=== PATIENT | female | born 1970 | race Caucasian/White ===

== ENCOUNTER → 2018-10-08 | Outpatient (CLI) | payer OTHER ==
--- NOTE | 2018-10-12 19:47 | RADIOLOGY REPORT (SQ) ---
EXAM DESCRIPTION: MRI BREAST BILATERAL W/WO COMPLETED DATE/TIME: 10/12/2018 7:30 pm REASON FOR STUDY: POS BRCA2 GENE MUTATION (Z15.01, Z15.09) Z15.01 GENETIC SUSCEPTIBILITY TO MALIGNA NT NEOPLASM OF BREAS Z15.09 GENETIC SUSCEPTIBILITY TO OTHER MALIGNANT NEOPLASM COMPARISON: Prior mammography PATHOLOGIC CORRELATION: None. CONTRAST TYPE AND DOSE: 20 mL Dotarem. RENAL FUNCTION: Not required TECHNIQUE: MR imaging performed with a dedicated breast coil. Pre contrast T1 and T2 weighted images . Pre contrast and post contrast enhanced T1 weighted images with fat saturation. Subtraction images, 3D thick and thin MIPS, and kinetic analysis performed on an independent workstat ion. ([employer] workstation) Magnet strength: 1.5 T LIMITATIONS: Mild misregistration artifact. FINDINGS: BREAST DENSITY: b. There are scattered areas of fibroglandular density. BACKGROUND PARENCHYMAL ENHANCEMENT:Minimal. RIGHT BREAST: No enhancing or suspicious masses. No clumped, regional/segmental ductal enhancement. Prior surgery. CHEST WALL: Normal tissue planes. No abnormal internal mammary nodes. AXILLA: Normal axillary and retro-pectoral nodes. LEFT BREAST:No enhancing or suspicious masses. No clumped, regional/segmental ductal enhancement. CHEST WALL: Normal tissue planes. No abnormal internal mammary nodes. AXILLA: Normal axillary and retro-pectoral nodes. OTHER:Well circumscribed lesion in the liver with high signal intensity on T2 typical of cyst or yadi ngioma. IMPRESSION: NORMAL MR OF THE BREASTS. BIRAD: RIGHT BREAST: 1 Negative. LEFT BREAST: 1 Negative. RECOMMENDATION: RECOMMENDED FOLLOW-UP: High risk protocol. TECHNICAL DOCUMENTATION: JOB ID: [id number] [employer]- All Rights Reserved Reading location - IP/workstation name: [email or web address]
== END ==
LOC: RAD 08:43
PROVIDERS: ATTEND Surgery
DX: Z15.01 Genetic susceptibility to malignant neoplasm of breast (principal); Z15.09 Genetic susceptibility to other malignant neoplasm
CPT/HCPCS: 77049; A9576

== ENCOUNTER 2019-03-02 21:56 | Emergency (ER) | payer OTHER ==
--- NOTE | 2019-03-02 22:22 | ER Document Report ---
ED Medical Screen (RME) - General Chief Complaint: Fever Stated Complaint: FEVER Time Seen by Provider: 03/02/19 22:11 Primary Care Provider: PANDA ROWE MD [Primary Care Provider] - Follow up as needed Mode of Arrival: Ambulatory Information source: Patient Notes: 48-year-old female presented to ED for complaint of fever chills and concerned that she has another infection in her breast. She states she had a double mastectomy on December 31 and had a second surgery for infection to the mastectomy site on January 07. She states she is just concerned because she developed fever again. She states she might just have a virus but she wants to make sure it is not an infection. She is alert oriented respirations regular and unlabored speaking in full sentences walks with even steady gait. She does have a history of thyroid cyst removal, gallbladder removal, lumpectomy to the breast, 4 bladder surgeries, and tonsils and adenoids. She is a former smoker drinks socially and does not do any drugs. I have greeted and performed a rapid initial assessment of this patient. A comprehensive ED assessment and evaluation of the patient, analysis of test results and completion of medical decision making process will be conducted by an additional ED providers. TRAVEL OUTSIDE OF THE [place] IN LAST 30 DAYS: No - Related Data Allergies/Adverse Reactions: adhesive Allergy (Verified 03/02/19 21:57) tetanus and diphtheria toxoids Allergy (Verified 03/02/19 21:57) Physical Exam - Vital signs Vitals: Temp Pulse Resp BP Pulse Ox 98.3 F 119 H 20 147/76 H 100 03/02/19 21:57 03/02/19 21:57 03/02/19 21:57 03/02/19 21:57 03/02/19 21:57 Course - Vital Signs Vital signs: Temp Pulse Resp BP Pulse Ox 98.3 F 119 H 20 147/76 H 100 03/02/19 21:57 03/02/19 21:57 03/02/19 21:57 03/02/19 21:57 03/02/19 21:57 Doctor's Discharge - Discharge Referrals: PANDA ROWE MD [Primary Care Provider] - Follow up as needed
--- NOTE | 2019-03-02 22:36 | ER Document Report ---
ED Fever - General Chief Complaint: Fever Stated Complaint: FEVER Time Seen by Provider: 03/02/19 22:36 Primary Care Provider: PANDA ROWE MD [Primary Care Provider] - Follow up as needed Mode of Arrival: Ambulatory Information source: Patient Notes: HISTORY OF PRESENT ILLNESS: Patient is a 48-year-old female with a past medical history of breast cancer sta tus post double mastectomy who presents with 1 to 2 days of mild fever along with slightly tender breasts. Patient denies drainage or redness surrounding her surgical sites, however she reports 2 weeks after her initial surgery she had to have another surgery to "remove infection from the first surgery." Location: General Onset: 2 days ago Provocation: None Quality: Mild fever Radiation: None Severity: Mild Timing: Constant Known sick contacts: Unknown, patient works in a car dealership Associated symptoms: No cough or congestion, no nasal drainage or discharge, no general malaise or weakness, no dysuria or hematuria Home treatment: Tylenol prior to arrival REVIEW OF SYSTEMS: CONSTITUTIONAL : Positive for mild fever but no chills or sweats. Denies recent illness. EENT: Denies eye, ear, throat, or mouth pain or symptoms. Denies nasal or sinus congestion. CARDIOVASCULAR: Denies chest pain. RESPIRATORY: Denies cough, cold, or chest congestion. Denies shortness of breath, difficulty breathing, or wheezing. GASTROINTESTINAL: Denies abdominal pain. Denies nausea, vomiting, or diarrhea. Denies constipation. GENITOURINARY: Denies difficulty urinating, painful urination, burning, frequency, or blood in urine. FEMALE GENITOURINARY: Denies vaginal bleeding, abnormal or irregular periods. MUSCULOSKELETAL: Denies body aches. Denies neck or back pain or joint pain or swelling. SKIN: Denies rash or skin lesions. HEMATOLOGIC : Denies easy bruising or bleeding. LYMPHATIC: Denies swollen, enlarged glands. NEUROLOGICAL: Denies altered mental status or loss of consciousness. Denies headache. Denies weakness or paralysis or loss of use of either side. Denies problems with gait or speech. Denies sensory or motor loss. PSYCHIATRIC: Denies anxiety or stress or depression. All other systems reviewed and negative. PHYSICAL EXAMINATION: GENERAL: Well-appearing, well-nourished and in no acute distress. HEAD: Atraumatic, normocephalic. No scalp deformity, depression, or crepitance. EYES: Pupils are 3 mm and equal/round/reactive to light, extraocular movements i ntact, sclera anicteric, conjunctiva are normal. ENT: Nares patent bilaterally, oropharynx clear without exudates or palatal petechia. Moist mucous membranes. No tonsil hypertrophy. NECK: Normal range of motion, supple without lymphadenopathy. CHEST: Previous vertical surgical incisions of the bilateral breasts are unremarkable, no tenderness or drainage, no erythema. Incision sites are clean/dry/intact and appear well-healed. LUNGS: Breath sounds present, equal, and clear to auscultation bilaterally. No wheezes, rales, or rhonchi. HEART: Regular rate and rhythm without murmurs, rubs, or gallops. 2+ peripheral pulses. Normal capillary refill. ABDOMEN: Soft, nontender, nondistended. Normoactive bowel sounds. No guarding, no rebound. No masses appreciated. BACK: Normal contour, no midline tenderness. Rectal exam deferred. GENITAL/PELVC: Deferred. EXTREMITIES: Normal range of motion, no pitting or edema. No cyanosis. NEUROLOGICAL: No focal neurological deficits. Moves all extremities spontaneously and on command. PSYCH: Normal mood, normal affect. No suicidal thoughts/ideations. No homicidal thoughts/ideations. No hallucinations. SKIN: Warm, dry, normal turgor, no rashes or lesions noted. ASSESSMENT AND PLAN: This patient is a 48-year-old female who presents with 2 days of fever of unknown etiology. Patient denies known sick contacts but she believes her job puts her in contact with many people. 1. Will obtain labs, urine, chest x-ray, and reassess. 2. Will obtain soft tissue ultrasound of the bilateral breast to assess for fluid collections or possible recurrent wound infections. TRAVEL OUTSIDE OF THE [place] IN LAST 30 DAYS: No - HPI Onset: Yesterday Onset/Duration: Gradual Quality of pain: No pain Severity: Mild Pain Level: Denies Context: Other - Double mastectomy in December Associated symptoms: None Similar symptoms previously: No Recently seen / treated by doctor: No - Related Data Allergies/Adverse Reactions: adhesive Allergy (Verified 03/02/19 21:57) tetanus and diphtheria toxoids Allergy (Verified 03/02/19 21:57) Past Medical History - General Information source: Patient - Social History Smoking Status: Former Smoker Chew tobacco use (# tins/day): No Frequency of alcohol use: None Drug Abuse: None Lives with: Family Family History: Reviewed & Not Pertinent Patient has suicidal ideation: No Patient has homicidal ideation: No - Past Medical History Cardiac Medical History: Reports: None Pulmonary Medical History: Reports: None EENT Medical History: Reports: None Neurological Medical History: Reports: None Endocrine Medical History: Reports: None Renal/ Medical History: Reports: None Malignancy Medical History: Reports: None GI Medical History: Reports: None Musculoskeletal Medical History: Reports None Skin Medical History: Reports None Psychiatric Medical History: Reports: None Traumatic Medical History: Reports: None Infectious Medical History: Reports: None Past Surgical History: Reports: Other - Hx of double mastectomy - Immunizations Immunizations up to date: Yes Hx Diphtheria, Pertussis, Tetanus Vaccination: Yes Review of Systems - Review of Systems Constitutional: See HPI, Fever EENT: No symptoms reported Cardiovascular: No symptoms reported Respiratory: No symptoms reported Gastrointestinal: No symptoms reported Genitourinary: No symptoms reported Female Genitourinary: No symptoms reported Musculoskeletal: No symptoms reported Skin: No symptoms reported Hematologic/Lymphatic: No symptoms reported Neurological/Psychological: No symptoms reported -: Yes All other systems reviewed and negative Physical Exam - Vital signs Vitals: Temp Pulse Resp BP Pulse Ox 98.3 F 119 H 20 147/76 H 100 03/02/19 21:57 03/02/19 21:57 03/02/19 21:57 03/02/19 21:57 03/02/19 21:57 Interpretation: Normal - General General appearance: Appears well, Alert - HEENT Head: Normocephalic, Atraumatic Eyes: Normal Pupils: PERRL - Respiratory Respiratory status: No respiratory distress Chest status: Nontender Breath sounds: Normal Chest palpation: Normal - Cardiovascular Rhythm: Regular Heart sounds: Normal auscultation Murmur: No - Abdominal Inspection: Normal Distension: No distension Bowel sounds: Normal Tenderness: Nontender Organomegaly: No organomegaly - Back Back: Normal, Nontender - Extremities General upper extremity: Normal inspection, Nontender, Normal color, Normal ROM, Normal temperature General lower extremity: Normal inspection, Nontender, Normal color, Normal ROM, Normal temperature, Normal weight bearing. No: Sujata's sign - Neurological Neuro grossly intact: Yes Cognition: Normal Orientation: AAOx4 [place] Coma Scale Eye Opening: Spontaneous [place] Coma Scale Verbal: Oriented Shu Coma Scale Motor: Obeys Commands Shu Coma Scale Total: 15 Speech: Normal Motor strength normal: LUE, RUE, LLE, RLE Sensory: Normal - Psychological Associated symptoms: Normal affect, Normal mood - Skin Skin Temperature: Warm Skin Moisture: Dry Skin Color: Normal Course - Re-evaluation Re-evalutation: 03/03/19 01:03 Blood work shows mild elevation of white blood cell count. Chest x-ray was grossly unremarkable. Ultrasound shows a small fluid collection adjacent to the right breast implant that could be a seroma or early infection. Given history, will give empiric antibiotics. Will discharge the patient home with strict return precautions and follow-up with your surgeon. All results were explained to and discussed with the patient, and all questions addressed and answered for the patient. The patient voices both understanding and agreeing with the plan. - Vital Signs Vital signs: Temp Pulse Resp BP Pulse Ox 98.7 F 99 16 125/66 97 03/03/19 00:39 03/03/19 00:39 03/03/19 00:39 03/03/19 00:39 03/03/19 00:39 - Laboratory Result Diagrams: 03/02/19 22:40 03/02/19 22:40 Laboratory results interpreted by me: 03/02/19 03/02/19 03/03/19 22:40 22:40 00:01 WBC 15.7 H RDW 14.3 H Lymph % (Auto) 10.0 L Blount % (Auto) 13.1 H Absolute Neuts (auto) 11.4 H Absolute Monos (auto) 2.1 H Absolute Eos (auto) 0.7 H Sodium 135.6 L AST 56 H Urine Protein 30 H - Diagnostic Test Radiology reviewed: Image reviewed, Reports reviewed Discharge - Discharge Clinical Impression: Seroma of breast Condition: Good Disposition: HOME, SELF-CARE Instructions: Fever ([facility]) Additional Instructions: You have been evaluated in the Emergency Department for fever. While here, you had a breast ultrasound that showed a possible fluid collection in your right breast and it is now safe to be discharged home. Please follow-up with your primary physician as well as your surgeon as instructed in 1 week. Return to the Emergency Department if you experience worsening fevers, swelling of the breast, chest pain, difficulty breathing, or any other concerning symptoms. Prescriptions: Cephalexin Monohydrate [Keflex 500 mg Capsule] 500 mg PO Q6H 7 Days #28 capsule Referrals: PANDA ROWE MD [Primary Care Provider] - Follow up as needed Print Language: Micronesian
[2019-03-02 23:03] LABS: ABSOLUTE EOSINOPHILS # (AUTO) 0.7 10^3/uL (0.0-0.6); ABSOLUTE LYMPHOCYTES (AUTO) 1.6 10^3/uL (0.5-4.7); ABSOLUTE MONOCYTES (AUTO) 2.1 10^3/uL (0.1-1.4); ABSOLUTE NEUT (AUTO) 11.4 10^3/uL (1.7-8.2); BASOPHILS % (AUTO) 0.2 % (0-2); EOSINOPHILS % (AUTO) 4.4 % (0-6); HEMATOCRIT 37.9 % (36.0-47.0); HEMOGLOBIN 13.1 g/dL (12.0-15.5); MEAN CORPUSCULAR HEMOGLOBIN 32.7 pg (27.0-33.4); MEAN CORPUSCULAR HGB CONC 34.4 g/dL (32.0-36.0); MEAN CORPUSCULAR VOLUME 95 fl (80-97); MONOCYTES % (AUTO) 13.1 % (3-13); PLATELET COUNT 360 10^3/uL (150-450); RED BLOOD COUNT 3.99 10^6/uL (3.72-5.28); RED CELL DISTRIBUTION WIDTH 14.3 % (11.5-14.0); SEGMENTED NEUTROPHILS % (AUTO) 72.3 % (42-78); TOTAL CELLS COUNTED % (AUTO) 100 %; WHITE BLOOD COUNT 15.7 10^3/uL (4.0-10.5)
[2019-03-02 23:17] LABS: ALBUMIN 4.2 g/dL (3.5-5.0); ALKALINE PHOSPHATASE 125 U/L (38-126); ANION GAP 13 (5-19); ASPARTATE AMINO TRANSFERASE 56 U/L (14-36); BILIRUBIN,DIRECT 0.3 mg/dL (0.0-0.4); BILIRUBIN,TOTAL 0.5 mg/dL (0.2-1.3); BLOOD UREA NITROGEN 13 mg/dL (7-20); CALCIUM 9.5 mg/dL (8.4-10.2); CARBON DIOXIDE 24 mmol/L (22-30); CHLORIDE 99 mmol/L (98-107); GLUCOSE 110 mg/dL (75-110); POTASSIUM 3.8 mmol/L (3.6-5.0); TOTAL PROTEIN 8.1 g/dL (6.3-8.2)
--- NOTE | 2019-03-02 23:36 | RADIOLOGY REPORT (SQ) ---
EXAM DESCRIPTION: XR CHEST 1 VIEW COMPLETED DATE/TME: 03/02/2019 23:01 CLINICAL HISTORY: 48 years, Female, Cough COMPARISON: None. NUMBER OF VIEWS: 1 TECHNIQUE: Portable chest LIMITATIONS: None. FINDINGS: The heart size is normal. Mild elevation of the right hemidiaphragm. Osteopenia. Surgical clips project over the lower left hemithorax. There is some equivocal retrocardiac infiltrate. No pneumothorax. Lungs are otherwise clear IMPRESSION: Equivocal retrocardiac infiltrate may reflect minor pneumonitis. Follow-up recommended copyright 2010 [employer]- All Rights Reserved
[2019-03-03 00:14] LABS: APPEARANCE,URINE SLIGHTLY-CLOUDY; BILIRUBIN,URINE NEGATIVE (NEGATIVE); COLOR,URINE YELLOW; GLUCOSE, URINE NEGATIVE (NEGATIVE); KETONES,URINE NEGATIVE (NEGATIVE); LEUKOCYTE ESTERASE,URINE NEGATIVE (NEGATIVE); NITRITE,URINE NEGATIVE (NEGATIVE); PROTEIN,URINE 30 mg/dL (NEGATIVE); URINE SPECIFIC GRAVITY 1.018; UROBILINOGEN,URINE NEGATIVE mg/dL (<2.0)
--- NOTE | 2019-03-03 00:15 | RADIOLOGY REPORT (SQ) ---
Ultrasound chest on 03/02/2019 at 11:32 PM CLINICAL INDICATION: Bilateral breast tenderness after recent bilateral mastectomies with bilateral breast implant placement COMPARISON: None FINDINGS: Limited sonographic imaging is performed throughout the bilateral anterior chest wall at the site of prior bilateral mastectomies and bilateral breast implant placement. The patient's bilateral breast implants are visualized. There is a 2.2 x 1.3 x 1.2 cm fluid collection adjacent to the patient's right breast implant. This may just represent postoperative seroma or hematoma. If there is high clinical concern for abscess, consider CT of the chest with contrast. No other fluid collections are noted. IMPRESSION: Small fluid collection adjacent to the patient's right breast implant. This may just represent postoperative stroma or hematoma but if there is high clinical concern for abscess consider follow-up CT of the chest with contrast.
[2019-03-03 00:39] VITALS: BP 125/66
[2019-03-03] MEDS ORDERED: CEPHALEXIN 500 MG CAPSULE PO ONE (01:07)
== END 2019-03-03 01:20 | disposition home or self-care (01) ==
LOC: ER 21:56
DX: N64.89 Other specified disorders of breast (principal); R50.9 Fever, unspecified; D72.829 Elevated white blood cell count, unspecified; Z90.13 Acquired absence of bilateral breasts and nipples; Z85.3 Personal history of malignant neoplasm of breast; Z91.048 Other nonmedicinal substance allergy status; Z88.7 Allergy status to serum and vaccine; Z87.891 Personal history of nicotine dependence
CPT/HCPCS: 36415; 71045; 76604; 80053; 81001; 83605; 85025; 87040; 99284